=== PATIENT | male | born 1955 | race Caucasian/White ===

== ENCOUNTER 2017-02-24 09:06 | Emergency (ER) | payer BC ==
[2017-02-24 09:15] VITALS: BP 139/83
[2017-02-24] MEDS ORDERED: DOXYcycline CAP(*) 100 MG PO ONE (09:29)
--- NOTE | 2017-02-24 09:39 | UC ---
Skin Complaint HPI - HPI Summary HPI Summary: Pt reports he went hunting yesterday, found a tick on lower right flank. pt remoived the tick at home, is concerned because tick was found one day later and thinks head of tick is still attached. - History of Current Complaint Chief Complaint: UCForeignBody Time Seen by Provider: 02/24/17 09:11 Stated Complaint: TICK Hx Obtained From: Patient Onset/Duration: Sudden Onset Skin Exposure Onset/Duration: Days Ago - 1 day Timing: Constant Onset Severity: Mild Current Severity: Mild Location: Discrete - right lower flank Character: Redness Aggravating Factor(s): Touch Alleviating Factor(s): Unknown Associated Signs & Symptoms: Positive: Bruising, Tenderness Related History: Insect Bite/Sting - Allergy/Home Medications Allergies/Adverse Reactions: Allergies Allergy/AdvReac Type Severity Reaction Status Date / Time Naproxen Allergy Rash Verified 02/24/17 09:12 Home Medications: Home Medications NK [No Home Medications Reported] 02/24/17 [History Confirmed 02/24/17] Review of Systems Constitutional: Negative Skin: Bruising, Other - tick bite Eyes: Negative ENT: Negative Respiratory: Negative Cardiovascular: Negative Gastrointestinal: Negative Genitourinary: Negative Motor: Negative Neurovascular: Negative Musculoskeletal: Negative Neurological: Negative Psychological: Negative Is Patient Immunocompromised?: No All Other Systems Reviewed And Are Negative: Yes PMH/Surg Hx/FS Hx/Imm Hx Previously Healthy: Yes - Surgical History Surgical History: None - Family History Known Family History: Positive: Cardiac Disease - Social History Occupation: Employed Full-time Lives: With Family Alcohol Use: Daily Alcohol Amount: 4-5 beers daily Substance Use Type: None Smoking Status (MU): Former Smoker Length of Time of Smoking/Using Tobacco: 1 PPD x 42 Years Have You Smoked in the Last Year: No - Immunization History Most Recent Influenza Vaccination: Not the 2017/2017 Season Physical Exam Triage Information Reviewed: Yes Appearance: Well-Appearing Vital Signs: Initial Vital Signs Temp 98.1 F 02/24/17 09:10 Pulse 62 02/24/17 09:10 Resp 16 02/24/17 09:10 BP 139/83 02/24/17 09:10 Pulse Ox 100 02/24/17 09:10 Vital Signs Reviewed: Yes Eye Exam: Normal ENT Exam: Normal Dental Exam: Normal Respiratory Exam: Other Respiratory: Positive: No respiratory distress Musculoskeletal Exam: Normal Neurological Exam: Normal Psychological Exam: Normal Skin Exam: Other - small erythema area right lower lateral flank, with darkened center ~ 5mm in diameter. Course/Dx - Differential Diagnoses - Skin Complaint Differential Diagnoses: Tick Born Illness - Diagnoses Provider Diagnoses: tick bite. possible head of tick remains intact in skin Discharge - Discharge Plan Condition: Stable Disposition: HOME Patient Education Materials: Tick Bite (ED) Referrals: David Ochoa MD [Medical Doctor] -
== END 2017-02-24 09:36 | disposition home or self-care (01) ==
LOC: UCCORT 09:06
DX: S30.861A Insect bite (nonvenomous) of abdominal wall, initial encounter (principal); W57.XXXA Bitten or stung by nonvenomous insect and other nonvenomous arthropods, initial encounter; Z88.6 Allergy status to analgesic agent; Z87.891 Personal history of nicotine dependence
CPT/HCPCS: 99202; A9270-GY; G0463

== ENCOUNTER 2017-05-22 11:16 | Emergency (ER) | payer BC ==
[2017-05-22 12:18] VITALS: BP 153/91
--- NOTE | 2017-05-22 12:53 | UC ---
Respiratory Complaint HPI - HPI Summary HPI Summary: Pt c/o fever, chills, night sweats, nasal congestion generalized malaise X 3 days. Pt reports that he woke last night with PND and thought he was swallowing large amount of mucus. Pt went to bathroom and discovered he had a bloody nose and that he had been swallowing large amounts of blood. P tcontrolled bleeding and then later today had BM ashley the noted as being black/darkened. Pt has not seen PCP in 3 years. Pt denies weight loss in last year and denies change in BM pattern. - History of Current Complaint Chief Complaint: UCRespiratory Stated Complaint: SINUSES,UPPER RESP Time Seen by Provider: 05/22/17 12:11 Hx Obtained From: Patient Onset/Duration: Gradual Onset, Lasting Days, Still Present, Worse Since - onset Timing: Constant Severity Initially: Mild Severity Currently: Mild Pain Intensity: 4 Character: Cough: Productive Aggravating Factors: Exertion, Deep Breaths, Recumbent Position Alleviating Factors: Nothing Associated Signs And Symptoms: Positive: Fever, Chills, Wheezing, URI, Nasal Congestion - Risk Factors Pulmonary Embolism Risk Factors: Smoking - former Cardiac Risk Factors: Smoking - former Pseudomonas Risk Factors: Negative Tuberculosis Risk Factors: Smoking - former - Allergies/Home Medications Allergies/Adverse Reactions: Allergies Allergy/AdvReac Type Severity Reaction Status Date / Time Naproxen Allergy Rash Verified 05/22/17 12:07 PMH/Surg Hx/FS Hx/Imm Hx Previously Healthy: Yes - Surgical History Surgical History: None - Family History Known Family History: Positive: Cardiac Disease - Social History Occupation: Retired Lives: With Family Alcohol Use: Daily Alcohol Amount: 3-4 beers daily Substance Use Type: None Smoking Status (MU): Former Smoker Length of Time of Smoking/Using Tobacco: 1 PPD x 42 Years Have You Smoked in the Last Year: No - Immunization History Most Recent Influenza Vaccination: Not the 2017/2018 Season Review of Systems Constitutional: Fever, Chills, Fatigue Skin: Negative Eyes: Negative ENT: Sinus Congestion Respiratory: Shortness Of Breath, Cough Cardiovascular: Negative Gastrointestinal: Negative Genitourinary: Negative Motor: Negative Neurovascular: Negative Musculoskeletal: Myalgia Neurological: Negative Psychological: Negative Is Patient Immunocompromised?: No All Other Systems Reviewed And Are Negative: Yes Physical Exam Triage Information Reviewed: Yes Vital Signs: Initial Vital Signs Temp 99 F 05/22/17 12:09 Pulse 78 05/22/17 12:09 Resp 18 05/22/17 12:09 BP 153/91 05/22/17 12:09 Pulse Ox 98 05/22/17 12:09 Vital Signs Reviewed: Yes Eye Exam: Normal ENT Exam: Normal ENT: Positive: Normal ENT inspection Dental Exam: Normal Neck exam: Normal Respiratory Exam: Normal Cardiovascular Exam: Normal Abdominal Exam: Normal Abdomen Description: Positive: Nontender, No Organomegaly Bowel Sounds: Positive: Present Musculoskeletal Exam: Normal Neurological Exam: Normal Psychological Exam: Normal Skin Exam: Normal UC Diagnostic Evaluation - Laboratory O2 Sat by Pulse Oximetry: 98 - Radiology Xray Interpretation: No Acute Changes - IMPRESSION: FINDINGS CONSISTENT WITH COPD, NO EVIDENCE FOR ACUTE FINDING. Radiology Interpretation Completed By: Radiologist Respiratory Course/Dx - Course Course Of Treatment: Xray: IMPRESSION: FINDINGS CONSISTENT WITH COPD, NO EVIDENCE FOR ACUTE FINDING. - Differential Dx/Diagnosis Differential Diagnosis/HQI/PQRI: Bronchitis, Pulmonary Embolism, Sinusitis Provider Diagnoses: Bronchitis Discharge - Discharge Plan Condition: Stable Disposition: HOME Prescriptions: Azithromycin TAB* [Zithromax TAB (Z-NA) 250 mg #6 tabs] 2 tab PO .TODAY, THEN 1 DAILY #1 na Patient Education Materials: Acute Bronchitis (ED) Referrals: [facility]IAN REFERRAL [Outside] No Primary Care Phys,NOPCP [Primary Care Provider] - Additional Instructions: Please establish care with a PCP . At todays visit, you r blood pressure was elevated outside the normal range. Additionally, you need to have routine health maintenance test and evaluation with relation to your age range and prior health habits.
--- NOTE | 2017-05-22 13:08 | RAD ---
INDICATION: Cough, wheezing, fever and night sweats. COMPARISON: There are no prior studies available for comparison. TECHNIQUE: Dual-energy PA and lateral views of the chest were obtained. FINDINGS: The heart is within normal limits in size. Mediastinal and hilar contours appear within normal limits. The lungs are hyperinflated and clear. There appear to be emphysematous bullae at both lung bases. No pleural effusion is seen. IMPRESSION: FINDINGS CONSISTENT WITH COPD, NO EVIDENCE FOR ACUTE FINDING.
== END 2017-05-22 13:30 | disposition home or self-care (01) ==
LOC: UCCORT 11:16
DX: J44.9 Chronic obstructive pulmonary disease, unspecified (principal); Z88.6 Allergy status to analgesic agent; Z87.891 Personal history of nicotine dependence
CPT/HCPCS: 71046; 87502; 99212; G0463

== ENCOUNTER 2018-01-02 10:22 | Emergency (ER) | payer BC ==
[2018-01-02 10:41] VITALS: BP 121/82
--- NOTE | 2018-01-02 10:56 | UC ---
Shoulder Pain HPI - HPI Summary HPI Summary: 62-year-old male presents with left shoulder pain. Denies any injury and not Sure if he was bit by an insect or not. He denies any recent cause for his pain but has significant pain in the anterior aspect of the left shoulder. Motrin and Intal the pain slightly. Extremities with 30 years ago he did have a fall which caused an injury to his neck and left shoulder. No sore tingling or weakness in the left arm. Pretty good range of motion but causes significant pain with lateral ab duction and he has no active orthopedic doctor at this time. His pain can become 10 out of 10 with palpation. denies fever or chills. Has denies neck pain at this time. - History of Current Complaint Chief Complaint: UCUpperExtremity Stated Complaint: LEFT SHOULDER INJ Time Seen by Provider: 01/02/18 10:55 Hx Obtained From: Patient Onset/Duration: Gradual Onset Timing: Constant Severity Initially: Mild Severity Currently: Moderate Pain Intensity: 5 Aggravating Factor(s): Movement Alleviating Factor(s): Rest - Allergies/Home Medications Allergies/Adverse Reactions: Allergies Allergy/AdvReac Type Severity Reaction Status Date / Time naproxen Allergy Rash Verified 01/02/18 10:36 Home Medications: Home Medications Ibuprofen TAB* [Advil TAB*] 600 mg PO Q6H PRN 01/02/18 [History Confirmed ] PMH/Surg Hx/FS Hx/Imm Hx Previously Healthy: Yes - Surgical History Surgical History: None - Family History Known Family History: Positive: Cardiac Disease - Social History Alcohol Use: None Alcohol Amount: none past 6 months Substance Use Type: None Smoking Status (MU): Former Smoker Length of Time of Smoking/Using Tobacco: 1 PPD x 42 Years Have You Smoked in the Last Year: No When Did the Patient Quit Smoking/Using Tobacco: 4 years ago - Immunization History Most Recent Influenza Vaccination: Not the 2017/2017 Season Review of Systems Motor: Decreased ROM Musculoskeletal: Arthralgia, Decreased ROM Is Patient Immunocompromised?: No All Other Systems Reviewed And Are Negative: Yes Physical Exam Triage Information Reviewed: Yes Appearance: Well-Appearing, No Pain Distress, Well-Nourished Vital Signs: Initial Vital Signs Temp 97.7 F 01/02/18 10:36 Pulse 67 01/02/18 10:36 Resp 18 01/02/18 10:36 BP 121/82 01/02/18 10:36 Pulse Ox 99 01/02/18 10:36 Vital Signs Reviewed: Yes Eyes: Positive: Conjunctiva Clear ENT: Positive: Hearing grossly normal Respiratory: Positive: No respiratory distress Musculoskeletal: Positive: Strength Intact, ROM Intact, No Edema, Other: - Moderate to severe pain with lateral abduction of the left shoulder. No physical deformity noted. No skin changes or color changes. 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 There is normal. Cervical spine examination normal without step-off or spinous process tenderness. Neurological Exam: Normal Neurological: Positive: Alert Psychological Exam: Normal Skin Exam: Normal Diagnostics - Laboratory Diagnostic Studies Completed/Ordered: X-ray reviewed and shows no acute concerns besides calcific tendinitis Shoulder Course/Dx - Course Course Of Treatment: Appears to be calcific tendinitis and it is advised to follow up with orthopedics. Offered pain medication but declined at this time. He is agreeable to the plan. X-ray reviewed and shows no acute concerns besides calcific tendinitis - Differential Dx/Diagnosis Differential Diagnosis/HQI/PQRI: Arthritis, Bursitis, Contusion, Rotator Cuff Injury, Sprain, Strain Provider Diagnoses: left shoulder calcific tendinitis Discharge - Sign-Out/Discharge Documenting (check all that apply): Patient Departure All imaging exams completed and their final reports reviewed: Yes - Discharge Plan Condition: Good Disposition: HOME Patient Education Materials: Calcific Tendinitis (ED) Referrals: No Primary Care Phys,NOPCP [Primary Care Provider] - 4 Days Pedro Pablo Mehta MD [Medical Doctor] - 1 Day (Ortho referral for calcific tendonitis ) - Billing Disposition and Condition Condition: GOOD Disposition: Home
--- NOTE | 2018-01-02 11:22 | RAD ---
Indication: Left shoulder pain. 3 views of left shoulder demonstrates calcific tendinitis of the distal supraspinatus tendon. There is no fracture or dislocation. No other bone or joint abnormality is noted. IMPRESSION: Calcific tendinitis of the supraspinatus tendon. No fracture is noted.
== END 2018-01-02 11:43 | disposition home or self-care (01) ==
LOC: UCCORT 10:22
DX: M75.32 Calcific tendinitis of left shoulder (principal); Z88.6 Allergy status to analgesic agent; Z87.891 Personal history of nicotine dependence
CPT/HCPCS: 99211; G0463